=== PATIENT | male | born 1965 | race Two or more races ===

== ENCOUNTER → 2024-08-16 | Outpatient (CLI) | payer MEDICAID, SELFPAY ==
--- NOTE | 2024-08-16 16:30 | XR_ITS ---
Examination: CT chest, without intravenous contrast. Sagittal and coronal 2-D reconstructions. Exam date and time: August 16, 2024 1626 hours INDICATIONS: Coughing congestion and shortness of breath beginning one month ago CTDI:vol (mGy) 16 DLP: (mGycm) 629 Technique: Multiple 3.0 mm axial sections of the chest to been obtained. Bone and lung density settings are obtained. Sagittal and coronal 2-D reconstructions have been obtained. Low dose protocols were performed. One or more of the following dose reduction techniques were used; automated exposure control, adjustment of the mA and/or KV according to patient size, use of iterative reconstruction technique. Findings: No thoracic aortic aneurysm dilatation Pulmonary artery segments are not enlarged 3 mm pulmonary nodule right middle lobe image 218, 3 mm pulmonary nodule right lower lobe image 221 No pneumonia or pulmonary edema No focal liver lesions Contracted gallbladder. Spleen is not enlarged No pancreatic or adrenal mass No hydronephrosis IMPRESSION: Noncalcified pulmonary nodules as above, with the studies baseline recommend 6 month follow-up CT chest without contrast No pneumonia, pulmonary edema or pleural disease
== END | disposition home or self-care (01) ==
LOC: CCTX 15:48
PROVIDERS: Referring Provider Internal Medicine Critical Care Medicine; Visit Provider Internal Medicine Critical Care Medicine
DX: R91.8 Other nonspecific abnormal finding of lung field (principal)
CPT/HCPCS: 71250

== ENCOUNTER → 2025-02-17 | Outpatient (CLI) | payer MEDICAID, SELFPAY ==
--- NOTE | 2025-02-17 10:30 | XR_ITS ---
Examination: CT chest, without intravenous contrast. Sagittal and coronal 2-D reconstructions. Exam date and time: February 17, 2025, 10:00 a.m. INDICATIONS: History coughing shortness of breath, 3 mm pulmonary nodule right middle lobe 3 mm pulmonary nodule right lower lobe on CT chest August 16, 2024 CTDI:vol (mGy) 14.1 DLP: (mGycm) 531 Technique: Multiple 3.0 mm axial sections of the chest to been obtained. Bone and lung density settings are obtained. Sagittal and coronal 2-D reconstructions have been obtained. Low dose protocols were performed. One or more of the following dose reduction techniques were used; automated exposure control, adjustment of the mA and/or KV according to patient size, use of iterative reconstruction technique. Findings: No thoracic aortic aneurysm dilatation Pulmonary artery segments are not enlarged No paratracheal tracheobronchial or bronchopulmonary adenopathy Stable 3 mm pulmonary nodule right middle lobe Stable 3 mm pulmonary nodule right lower lobe No new pulmonary nodules No pneumonia or pulmonary edema No visualized liver or splenic lesion No pancreatic mass No gallstones Kidneys partially visualized no hydronephrosis Moderate thoracic degenerative disc disease IMPRESSION: Stable subcentimeter pulmonary nodules compared with 12/17/2024, no new pulmonary nodules
== END | disposition home or self-care (01) ==
PROVIDERS: PCP Family Medicine; Referring Provider Student in an Organized Health Care Education/Training Program; Visit Provider Student in an Organized Health Care Education/Training Program
DX: R91.8 Other nonspecific abnormal finding of lung field (principal)
CPT/HCPCS: 71250